=== PATIENT | female | born 1960 | race Caucasian/White ===

== ENCOUNTER 2018-09-18 06:57 | Day surgery (SDC) | payer BC ==
[~2018-09-18 06:57] MED LIST: CEFAZOLIN 2 Gram 2 GM/50 ML BAG IVPB ONE; FAMOTIDINE 20MG TABLET PO ONE; MECLIZINE 25 MG TABLET PO ONE; METOCLOPRAMIDE 10 MG TABLET PO ONE
[2018-09-18] MEDS ORDERED: KETAMINE HCL 100MG/1ML VIAL INJ ONE (06:58)
[2018-09-18] MEDS ORDERED: DEXAMETHASONE 4 MG/ML 1ML VIAL IVP ONE (06:58)
[2018-09-18] MEDS ORDERED: GLYCOPYRROLATE 0.2 MG/ML ML IV ONE (06:58)
[2018-09-18] MEDS ORDERED: ROPIVACAINE HCL (NAROPIN) /PF 5MG/ML 20ML VIAL IV ONE (06:58)
[2018-09-18] MEDS ORDERED: MIDAZOLAM HCL 2MG/2ML VIAL IV ONE (06:58)
[2018-09-18] MEDS ORDERED: PROPOFOL 10 MG/ML VIAL IV ONE (06:58)
[2018-09-18] MEDS ORDERED: RINGERS SOLUTION,LACTATED 1,000 ML IV ONE ×2 (07:55→09:15)
[2018-09-18] MEDS ORDERED: HYDROCODONE/APAP 5/325MG TABLET PO PRN (11:30)
[2018-09-18] MEDS ORDERED: SENNOSIDES/DOCUSATE SODIUM UD CAPSULE PO PRN (11:30)
[2018-09-18] MEDS ORDERED: MAGNESIUM HYDROXIDE 30 ML UDC PO PRN (11:30)
[2018-09-18] MEDS ORDERED: ACETAMINOPHEN 325 MG TAB PO PRN (11:30)
[2018-09-18] MEDS ORDERED: DIPHENHYDRAMINE HCL 25 MG CAPSULE PO PRN (11:30)
[2018-09-18] MEDS ORDERED: NALOXONE 0.4 MG/1 ML VIAL IVP PRN (11:30)
[2018-09-18] MEDS ORDERED: METOCLOPRAMIDE HCL 10 MG/2 ML VIAL IVP PRN (11:30)
[2018-09-18] MEDS ORDERED: AL HYDROX/MAG HYDROX 30ML UD PO PRN (11:30)
[2018-09-18] MEDS ORDERED: TRAMADOL HCL 50 MG TABLET PO PRN (11:30)
[2018-09-18] MEDS ORDERED: ZOLPIDEM TARTRATE 5 MG TABLET PO PRN (11:30)
[2018-09-18] MEDS ORDERED: OXYCODONE HCL/APAP 5MG/325MG TABLET PO PRN (11:30)
[2018-09-18] MEDS: RINGERS SOLUTION,LACTATED 1,000 ML IV SCH (11:42)
[2018-09-18] MEDS: OXYCODONE HCL/APAP 5MG/325MG TABLET PO PRN ×2 (11:48→16:03)
[2018-09-18] MEDS: HYDROMORPHONE HCL 2 MG/ML VIAL IV PRN ×4 (12:14→20:16)
[2018-09-18] MEDS ORDERED: ALBUTEROL HFA 8 GM INHALER INH PRN (13:00)
[2018-09-18] MEDS ORDERED: TRANEXAMIC ACID 1,000 MG in 0.9 % SODIUM CHLORIDE 100ML 100 ML IVPB ONE (13:00)
[2018-09-18] MEDS: CEFAZOLIN 2 Gram 2 GM/50 ML BAG IVPB SCH (17:23)
--- NOTE | 2018-09-18 17:34 | Rehab Evaluation ---
Patient Information - Patient Information Diagnosis: R Knee OA Ordered Treatment: PT Evaluate and Treat Status: Initial Evaluation Surgery: Yes (R TKA) Date of Surgery: 09/18/18 Past Medical/Surgical Hx: PAST MEDICAL/SURGICAL HISTORY Past Surgical History C SCOPES HYST KD KNEE SCOPES LEFT CATARACT PMH - Respiratory Hx Respiratory Disorders Yes Hx Asthma Yes: USES INHALER 1X'S A MONTH SMELLS SET IT OF PERFUMES ETC. Hx Bronchitis Yes Hx of SOB Yes: AT TIMES R/T ANXIETY PMH - Cardiovascular Hx Cardiovascular Disorders Yes Hx Hypertension Yes: CONTROLLED WITH MEDS Exercise Tolerance Fair PMH - Neuro Hx Neurological Disorders Yes Hx Headaches Yes: TENSION H/A'S AT TIMES PMH - GI Hx Gastrointestinal Disorders No PMH - Hx Genitourinary Disorders No Comment: S/P HYST PMH - Endocrine Hx Endocrine Disorders No PMH - Musculoskeletal Hx Musculoskeletal Disorders Yes Hx Arthritis Yes: KNEES Comment: "FROZEN" LEFT SHOULDER PMH - Psych Hx Psychiatric Problems Yes Hx Anxiety Yes: AT NIGHT PMH - Hematology/Oncology Hx Hematology/Oncology Yes Disorders Hx Blood Transfusion Reaction No Premorbid Status: Detail (The patient was independent with mobility prior to surgery, however had complaints of L shoulder pain with activity.) Social History: Detail (The patient lives with spouse in one story house with one step a landing and one step into house with no handrails. The bathroom is equipped with : tub/shower combination,handheld shower, standard toilet with a riser seat. The bathroom does not have grab bars. The patient has a front wheeled walker.) Precautions: [place], Fall, Other (WBAT on the R LE.) - Time With Patient Total Time Spent With Patient (Min): 45 Treatment Procedures: Detail (Initial Evaluation, gait training) Subjective Information - Subjective Information Per Patient (The patient complained of level 6 R knee pain using 0-10 pain scale.) Objective Data - Mental Status Patient Orientation: Oriented x3 - Visual Perception Appears within normal limits for therapeutic activities - ROM Not within normal limits (The patient's R knee AROM is limited s/p surgery. All other LE AROM is WNL.) - Strength/Tone Not within normal limits (The patient's LE strength was not tested s/p and due to pain complaints.) - Bed Mobility Needs Assist (The patient acheived supine to sit with use of trapeze and minimal assist of one to handle R LE. The patient was independent with sit to supine with use of trapeze. Movements were slow and gaurded and patient screamed in pain x 1 when completing supine to sit.) - Transfers Independent (The patient was independent with sit to and from stand transfer and toilet transfer.) - Balance Balance Sitting: Good Balance Standing: Good (Patient was able to stand and handle pants.) - Sensation Intact - Gait Detail (The patient ambulated with front wheeled walker WBAT on the R LE with supervision for safety only a distance of 7.5 feet x 1 and 30 feet x 1. Initially the patient's gait pattern was slow and gaurded but improved the more she ambulated. Patient's anxiety and anticipation of pain decreased the more she moved.) Therapy Assessment - Therapy Assessment Detail (The patient required assistance with bed mobility and was independent with transfers and ambulation. Patient's pain is limiting factor with mobility however feel the patient will progress well.) Problem List - Problem List Physical Therapy Problem List: Detail (1) R knee pain especially with movement 2) Limited R knee AROM and strength s/p surgery 3) Assistance with bed mobility) Goals - Goals Physical Therapy Goals: 1) The patient will be independent with bed mobility. 2) The patient will ambulate on stairs with supervision for safety using proper technique. 3) The patient will be independent with TKA HEP. 4) The patient will ambulate with assistive device independently WBAT on the R LE distances of 50 plus feet. Prognosis - Prognosis Good Plan - Plan Physical Therapy Plan: PT 1-3 visits for gait training on levels and stairs, instruction in HEP and bed mobility.
[2018-09-18] MEDS: ONDANSETRON HCL IV 4 MG/2 ML VIAL IVP PRN ×2 (18:11→21:48)
[2018-09-18] MEDS: TRAMADOL HCL 50 MG TABLET PO PRN (20:19)
[2018-09-18] MEDS: ASPIRIN 325 MG TAB ENTERIC-COATED PO SCH (22:04)
[2018-09-19] MEDS: CEFAZOLIN 2 Gram 2 GM/50 ML BAG IVPB SCH ×2 (01:20→10:49)
[2018-09-19] MEDS: ONDANSETRON HCL IV 4 MG/2 ML VIAL IVP PRN ×2 (02:48→11:00)
[2018-09-19] MEDS: HYDROMORPHONE HCL 2 MG/ML VIAL IV PRN (02:55)
[2018-09-19] MEDS: HYDROCODONE/APAP 5/325MG TABLET PO PRN ×2 (03:57→10:52)
[2018-09-19] MEDS: TRAMADOL HCL 50 MG TABLET PO PRN ×2 (08:07→13:45)
[2018-09-19] MEDS ORDERED: HYDROCHLOROTHIAZIDE 25 MG TABLET PO SCH (10:00)
[2018-09-19] MEDS ORDERED: LOSARTAN POTASSIUM 100 MG TABLET PO SCH (10:00)
[2018-09-19] MEDS ORDERED: AMLODIPINE BESYLATE 5MG TAB PO SCH (10:00)
[2018-09-19] MEDS: RINGERS SOLUTION,LACTATED 1,000 ML IV SCH (10:24)
[2018-09-19] MEDS: ASPIRIN 325 MG TAB ENTERIC-COATED PO SCH (10:46)
--- NOTE | 2018-09-19 10:59 | Rehab Evaluation ---
Patient Information - Patient Information Diagnosis: R Knee OA Ordered Treatment: OT Evaluate and Treat Status: Initial Evaluation Surgery: Yes (R TKA) Date of Surgery: 09/18/18 Past Medical/Surgical Hx: PAST MEDICAL/SURGICAL HISTORY Past Surgical History C SCOPES HYST KD KNEE SCOPES LEFT CATARACT PMH - Respiratory Hx Respiratory Disorders Yes Hx Asthma Yes: USES INHALER 1X'S A MONTH SMELLS SET IT OF PERFUMES ETC. Hx Bronchitis Yes Hx of SOB Yes: AT TIMES R/T ANXIETY PMH - Cardiovascular Hx Cardiovascular Disorders Yes Hx Hypertension Yes: CONTROLLED WITH MEDS Exercise Tolerance Fair PMH - Neuro Hx Neurological Disorders Yes Hx Headaches Yes: TENSION H/A'S AT TIMES PMH - GI Hx Gastrointestinal Disorders No PMH - Hx Genitourinary Disorders No Comment: S/P HYST PMH - Endocrine Hx Endocrine Disorders No PMH - Musculoskeletal Hx Musculoskeletal Disorders Yes Hx Arthritis Yes: KNEES Comment: "FROZEN" LEFT SHOULDER PMH - Psych Hx Psychiatric Problems Yes Hx Anxiety Yes: AT NIGHT PMH - Hematology/Oncology Hx Hematology/Oncology Yes Disorders Hx Blood Transfusion Reaction No Premorbid Status: Detail (The patient was independent with mobility prior to surgery, however had complaints of L shoulder pain with activity. Pt was responsible for home mgmt, meal prep and laundry; spouse was responsible for yard work.) Social History: Detail (The patient lives with spouse in one story house with one step a landing and one step into house with no handrails. The bathroom is equipped with : tub/shower combination, hand held shower, standard toilet with a riser seat. The bathroom does not have grab bars. The patient has a front wheeled walker.) Precautions: [place], Fall, Other (WBAT on the R LE.) - Time With Patient Total Time Spent With Patient (Min): 45 Treatment Procedures: Detail (OT eval low complexity) Subjective Information - Subjective Information Per Patient, Other (Spouse) Objective Data - Pain Pain Present: Yes (6/10 at rest) - Mental Status Patient Orientation: Oriented x3 - Visual Perception Appears within normal limits for therapeutic activities - ROM Not within normal limits (Cong UE AROM WNL with exception of left shoulder flexion which has been limited for several years (had SHARMAINE in 2011). She reports motion is functional for her level of activity.) - Strength/Tone Within normal limits (Pt reports weakness in arms, per observation pt has functional UE strength for ADLs/IADLs.) - Coordination Appears within normal limits for therapeutic activities - Bed Mobility Independent (Ind with supine to sit using bed rail.) - Transfers Independent (Ind with sit to stand at EOB.) - Balance Balance Sitting: Good Balance Standing: Fair (Pt had loss of balance while standing at EOB to pull pants up but was able to safely sit on EOB.) - Sensation Intact - ADL's/IADL's Detail (Pt educated and able to demonstrate learning of modified LE dressing techniques including doffing briefs and donning underwear and scrub bottoms. Pt reports spouse will assist with shoes and socks. Reviewed kitchen and shower safety and modifications, pt verbalized understanding.) Therapy Assessment - Therapy Assessment Detail (Pt able to perform partial LE dressing using modified techniques, she plans to have spouse assist as needed.) Problem List - Problem List Physical Therapy Problem List: Detail (1) R knee pain especially with movement 2) Limited R knee AROM and strength s/p surgery 3) Assistance with bed mobility) Occupational Therapy Problem List: Detail (No current IP OT problems identified.) Goals - Goals Physical Therapy Goals: 1) The patient will be independent with bed mobility. 2) The patient will ambulate on stairs with supervision for safety using proper technique. 3) The patient will be independent with TKA HEP. 4) The patient will ambulate with assistive device independently WBAT on the R LE distances of 50 plus feet. Occupational Therapy Goals: No current IP OT goals identified. Prognosis - Prognosis Good Plan - Plan Physical Therapy Plan: PT 1-3 visits for gait training on levels and stairs, instruction in HEP and bed mobility. Occupational Therapy Plan: No further IP OT recommended. Thank you for this referral.
--- NOTE | 2018-09-19 11:14 | Physical Therapy Tx Note ---
Physical Therapy Tx Note - Treatment Note Tolerated: Fair Total Time Spent With Patient: 25 Physical Therapy Tx Note: Detail (The patient was sitting on the edge of the bed when PT arrived. The patient was tearful ie: LOB episode with OT when standing. The patient was indpendent with sit to and from stand transfer. The patient ambulated with front wheeled walker WBAT on the R LE independently a distance of 100 feet x 1. The patient completed the following TKA exercises seated: ankle pumps, gluteal sets, quad sets, heel slides, hamstring sets. The patient is less fearful of movement today and is bending her knee more with gait and exercises. Will see patient this afternoon for stairs and car transfer.) Physical Therapy Problem List: Detail (1) R knee pain especially with movement 2) Limited R knee AROM and strength s/p surgery 3) Assistance with bed mobility) Physical Therapy Goals: 1) The patient will be independent with bed mobility. 2) The patient will ambulate on stairs with supervision for safety using proper technique. 3) The patient will be independent with TKA HEP. 4) The patient will ambulate with assistive device independently WBAT on the R LE distances of 50 plus feet. (Goal Met) Physical Therapy Plan: PT 1-3 visits for gait training on levels and stairs, instruction in HEP and bed mobility.
--- NOTE | 2018-09-19 14:02 | Physical Therapy Tx Note ---
Physical Therapy Tx Note - Treatment Note Tolerated: Good Total Time Spent With Patient: 20 Physical Therapy Tx Note: Detail (The patient was independent with sit to and from supine. The patient ambulated to wheelchair and was taken to Rehab Dept. to ambulate on stairs. The patient ambulated on 3 steps with use of 2 railings using proper technique with supervision for safety. Patient also ambulated on stairs with use of one railing and quad cane with supervision for safety. Patient's was present for session. The patient and her both felt comfortable with stairclimbing and decided the front enterance would be easier because she had a pole to hang onto as a railing. The patient was transferred to car with observing. The pt. required minimal PA of lift R LE into car. The patient has met all inpatient goals and is discharged from inpatient PT.) Physical Therapy Problem List: Detail (1) R knee pain especially with movement 2) Limited R knee AROM and strength s/p surgery 3) Assistance with bed mobility) Physical Therapy Goals: 1) The patient will be independent with bed mobility (Goal Met). 2) The patient will ambulate on stairs with supervision for safety using proper technique (Goal Evelyn). 3) The patient will be independent with TKA HEP (Goal Met). 4) The patient will ambulate with assistive device independently WBAT on the R LE distances of 50 plus feet. (Goal Met) Physical Therapy Plan: The patient has discharged from inpatient PT and is to continue with outpatient PT.
--- NOTE | 2018-09-20 08:11 | Discharge Summary ---
DATE OF ADMISSION: 09/18/2018 DATE OF DISCHARGE: 09/19/2018 ADMITTING DIAGNOSIS: Osteoarthritis of the right knee. DISCHARGE DIAGNOSIS: Osteoarthritis of the right knee. OPERATIVE PROCEDURE: Right total knee arthroplasty. HISTORY OF PRESENT ILLNESS: This 58-year-old female was admitted to the hospital for elective total knee arthroplasty. Tolerated the operative procedure well. The drain was removed the first postoperative day. She did complain of some nausea with narcotics, which was improved with Zofran. She progressed satisfactorily with PT and did clear physical therapy and was ready for discharge. DISCHARGE INSTRUCTIONS: Follow up in the clinic in 2 weeks. Routine wound care instructions were given. She will have outpatient physical therapy. She was to take aspirin 325 mg daily, Zofran ODT #20 1 every 6 hours p.r.n., and [place] 5/325 #40, 1 every 6 hours as necessary for pain. Should she have any problems prior to being seen she was instructed to call my office. MYKEL
--- NOTE | 2018-09-20 08:11 | Operative Note ---
DATE OF SURGERY: 09/18/2018 SURGEON: Avinash Michaud DO PREOPERATIVE DIAGNOSIS: Osteoarthritis of the right knee. POSTOPERATIVE DIAGNOSIS: Osteoarthritis of the right knee. OPERATION: Right total knee arthroplasty. DESCRIPTION OF PROCEDURE: This 58-year-old female was taken to the operating room and placed in the supine position on the operating room table. Spinal anesthetic was administered, and the right lower extremity was elevated. It was prepped with Hibiclens and draped in the usual sterile fashion. It was exsanguinated and the tourniquet inflated to 300 mmHg. An anterior longitudinal midline incision was made followed by a medial parapatellar arthrotomy incision. An intracondylar drill hole was made for the intramedullary alignment bina, and a 5-degree valgus 9 mm cut was made in the distal femur. The sizing jig was affixed and the patient had a significant anterior-posterior/medial-lateral mismatch with the femur being much larger anterior-posterior than medial-lateral. For compromise, we moved the pin sites 2 mm anteriorly and cut a size 65, which gave us good coverage without a significant overlap medial-laterally. The wafers of bone were removed. The 4-in-1 cutting block had been pinned in 3 degrees of external rotation. We then directed our attention to the proximal tibia, and an extramedullary alignment guide was used to cut the proximal tibia referencing a 10 mm cut off the lateral tibial plateau. A wafer of bone was removed. Remnants of the menisci and osteophytes were removed from the posterior aspect of the joint. The patella was cut and restored to anatomic height with a 34 x 7.8 mm trial. The wound copiously irrigated with pulse lavage, lactated Ringer's solution. The tibia stem punch was used. A size 71 was seen to be the appropriate size. The components were then inserted, and a 13 and 71 tibial bearing was seen to be the appropriate size. The 65 femur, 34 x 7.8 mm patella was used. This gave us excellent stability throughout the entire range of motion. All trial components were then removed and the wound copiously irrigated with pulse lavage lactated Ringer's solution removing all chips from the joint. All bony surfaces were dried and all components were cemented into place. Initially a size 71 tibial baseplate was cemented into place followed by the insertion of the tibial bearing, femoral component, and finally the patella. Once the cement had hardened, the knee was again taken through range of motion and excellent stability of the components with full extension, full flexion was accomplished. The wound again copiously irrigated with lactated Ringer's solution. A drain was placed through a separate stab incision, and the arthrotomy incision was closed with a #2 Vicryl. The subcutaneous tissue was closed with 0 Vicryl and the skin was stapled. Sterile dressings applied with a Polar Pack. The patient was taken to the recovery room in satisfactory condition. GROSS PATHOLOGY: This patient demonstrated very severe patellofemoral osteoarthritis. Full-thickness articular cartilage loss was noted there. Medial and lateral components also showed grade 4 changes. Final components inserted were a [employer] Vanguard size 65 cruciate retaining femoral component, a 13 x 71 anterior stabilized tibial baseplate, E1 component was used, a 71 tibial baseplate, and a 34 x 7.8 mm patella was used. MYKEL
== END 2018-09-19 15:10 | disposition home or self-care (01) ==
LOC: SUR 06:57 → MEDSURG 11:00 → SUR 09-19 15:10
PROVIDERS: ATTEND Orthopaedic Surgery
DX: M17.11 Unilateral primary osteoarthritis, right knee (principal); I10 Essential (primary) hypertension; J45.909 Unspecified asthma, uncomplicated
CPT/HCPCS: 76942; 94640; 94664; J2405; J3490; J7120

== ENCOUNTER 2019-01-25 06:02 | Day surgery (SDC) | payer BC ==
[~2019-01-25 06:02] MED LIST changes: +SCOPOLAMINE 1 PATCH TDSY TD ONE
[2019-01-25] MEDS ORDERED: LIDOCAINE 2% MDV (20MG/ML) 20ML VIAL IV ONE (06:03)
[2019-01-25] MEDS ORDERED: PROPOFOL 10 MG/ML VIAL IV ONE (06:03)
[2019-01-25] MEDS ORDERED: DEXAMETHASONE 4 MG/ML 1ML VIAL IVP ONE (06:03)
[2019-01-25] MEDS ORDERED: MIDAZOLAM HCL 2MG/2ML VIAL IV ONE (06:03)
[2019-01-25] MEDS ORDERED: ROPIVACAINE HCL (NAROPIN) /PF 5MG/ML 20ML VIAL IV ONE (06:03)
[2019-01-25] MEDS ORDERED: ONDANSETRON HCL IV 4 MG/2 ML VIAL IVP ONE (06:03)
[2019-01-25] MEDS ORDERED: RINGERS SOLUTION,LACTATED 1,000 ML IV ONE ×2 (06:55→08:15)
[2019-01-25] MEDS ORDERED: KETOROLAC 30 MG/ML VIAL IVP ONE (09:33)
[2019-01-25] MEDS ORDERED: ALBUTEROL HFA 8 GM INHALER INH PRN (10:05)
[2019-01-25] MEDS ORDERED: DIPHENHYDRAMINE HCL 25 MG CAPSULE PO PRN (10:15)
[2019-01-25] MEDS ORDERED: NALOXONE 0.4 MG/1 ML VIAL IVP PRN (10:15)
[2019-01-25] MEDS ORDERED: OXYCODONE HCL/APAP 5MG/325MG TABLET PO PRN ×2 (10:15)
[2019-01-25] MEDS ORDERED: AL HYDROX/MAG HYDROX 30ML UD PO PRN (10:15)
[2019-01-25] MEDS ORDERED: SENNOSIDES/DOCUSATE SODIUM UD CAPSULE PO PRN (10:15)
[2019-01-25] MEDS ORDERED: MAGNESIUM HYDROXIDE 30 ML UDC PO PRN (10:15)
[2019-01-25] MEDS ORDERED: TRAMADOL HCL 50 MG TABLET PO PRN (10:15)
[2019-01-25] MEDS ORDERED: ZOLPIDEM TARTRATE 5 MG TABLET PO PRN (10:15)
[2019-01-25] MEDS ORDERED: ONDANSETRON HCL IV 4 MG/2 ML VIAL IVP PRN (10:15)
[2019-01-25] MEDS ORDERED: METOCLOPRAMIDE HCL 10 MG/2 ML VIAL IVP PRN (10:15)
[2019-01-25] MEDS ORDERED: ACETAMINOPHEN 325 MG TAB PO PRN (10:15)
--- NOTE | 2019-01-25 10:53 | Operative Note ---
DATE OF SURGERY: 01/25/2019 SURGEON: Avinash Michaud D.O. REFERRING PHYSICIAN: Kimberly Larsen M.D. PREOPERATIVE DIAGNOSIS: OSTEOARTHRITIS OF THE LEFT KNEE. POSTOPERATIVE DIAGNOSIS: OSTEOARTHRITIS OF THE LEFT KNEE. OPERATION: LEFT TOTAL KNEE ARTHROPLASTY. DESCRIPTION: This 58-year-old female was taken to the Operating Room and placed in supine position on the operating room table. A spinal anesthetic was induced and the left lower extremity was elevated. It was prepped with Hibiclens and draped in the usual sterile fashion. It was exsanguinated and the tourniquet was inflated to 300 mmHg. All scrub personnel wore personal isolation suits. An anterior longitudinal midline incision was made followed by medial parapatellar arthrotomy incision, intracondylar drill holes made for intramedullary alignment bina and a 5 degree valgus 9 mm cut was made in the distal femur and the wafer of bone was removed. The sizing jig was affixed and the patient had a mismatch with the knee being too narrow in the mediolateral dimension and too large in the anteroposterior dimension. It was therefore necessary for us to move the cutting block 2 mm anterior and a 65 mm cut was then made with the cutting block pinned in 3 degrees of external rotation. The wafers of bone were removed. We then directed our attention to the proximal tibia and an extramedullary alignment guide was used to cut the proximal tibia referencing a 10 mm cut off the lateral tibial plateau. The patient did have bone loss both in the medial and lateral side, but appeared to be worse on the medial side. After the appropriate alignment had been assured a 3 degree posterior slope cut was made on the proximal tibia and the wafer of bone was removed. Remnants of the menisci and osteophytes were removed from the posterior aspect of the joint. The wound was copiously irrigated with pulse lavage lactated Ringer's solution. The patella was cut and restored to anatomic height with a 34 x 7.8 mm trial. The remainder of the trial components were inserted and we started with a 10 and went up to a 12 mm bearing giving us the best stability through full range of motion. All trial components were then removed and the wound again was copiously irrigated with pulse lavage lactated Ringer's solution. All bony surfaces were dried, excess cement was removed after the insertion of each component. Initially a size 75 tibial baseplate was cemented into place followed by the insertion of the 12 mm tibial bearing. A 65 mm femoral component was inserted and finally the patella was cemented into place. Once the cement had hardened the knee was again taken through range of motion and found to be completely stable with full extension. No varix or valgus instability. Full flexion of the patellofemoral joint was stable. A drain was placed through a separate stab incision and the arthrotomy incision was closed with #2 Vicryl, subcutaneous tissue was closed with 0 Vicryl, and the skin was stapled. Sterile dressings with Polar Care were applied and the patient was taken to the Recovery Room in satisfactory condition. GROSS PATHOLOGY: This patient demonstrated very severe osteoarthritis of the left knee with full thickness articular cartilage loss noted in all compartments with marked wear of the patella and full thickness articular cartilage loss noted on both compartments on the femoral surface and on the medial compartment of the tibial surface. Serial Grade 3 changes were noted on the lateral tibial surface. Final components inserted were [employer] Vanguard size 65 cruciate retaining femoral component, a 75 tibial baseplate, a 12 mm anterior stabilized E1 bearing and a 34 x 7.8 mm patella was used. JOB NUMBER: [id number] MTDD
[2019-01-25] MEDS: HYDROCODONE/APAP 5/325MG TABLET PO PRN ×2 (11:26→21:03)
[2019-01-25] MEDS: RINGERS SOLUTION,LACTATED 1,000 ML IV SCH ×2 (12:57→15:18)
--- NOTE | 2019-01-25 14:04 | Rehab Evaluation ---
Patient Information - Patient Information Diagnosis: L knee DJD Ordered Treatment: PT Evaluate and Treat Status: Initial Evaluation Surgery: Yes (L TKA) Date of Surgery: 01/25/19 Past Medical/Surgical Hx: PAST MEDICAL/SURGICAL HISTORY Surgery to Affected Area? No Recent Surgery? 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 Hx Bronchitis Yes Hx of URI Yes: RECENT SINUS INFECTION RESOLVED Hx of SOB Yes: AT TIMES R/T ANXIETY PMH - Cardiovascular Hx Cardiovascular Disorders Yes Hx Hypertension Yes: CONTROLLED WITH MEDS Exercise Tolerance Good PMH - Neuro Hx Neurological Disorders Yes Hx Headaches Yes: TENSION H/A'S AT TIMES PMH - GI Hx Gastrointestinal Disorders No PMH - Hx Genitourinary Disorders No Comment: S/P HYST PMH - Endocrine Hx Endocrine Disorders No PMH - Musculoskeletal Hx Musculoskeletal Disorders Yes Hx Arthritis Yes: KNEES Comment: "FROZEN" LEFT SHOULDER PMH - Psych Hx Psychiatric Problems Yes Hx Anxiety Yes: r t upcoming sx; at night time too-mind doesn't shut down. PMH - Hematology/Oncology Hx Hematology/Oncology Yes Disorders Hx Blood Transfusion Reaction No Premorbid Status: Detail (The patient was independent with all mobility prior to surgery.) Social History: Detail (The patient lives with spouse in a one story house with one step a landing and one step with no handrails at the enterance. The bathroom is equipped with: a tub/shower combination, joslyn held shower, standard height toilet seat with a riser seat. There are no grab bars in the bathroom. The patient has a front wheeled walker.) Precautions: [place], Fall, Other (WBAT on the L LE) - Time With Patient Total Time Spent With Patient (Min): 30 Treatment Procedures: Detail (Initial evaluation, low complexity , gait training on levels and stairs.) Subjective Information - Subjective Information Per Patient (The patient had complaints of L knee pain level 3 at the highest.) Objective Data - Pain Pain Present: Yes Pain Intensity: 3 Pain Scale Used: Numeric (1 - 10) - Mental Status Patient Orientation: Oriented x3 - Visual Perception Appears within normal limits for therapeutic activities - ROM Not within normal limits (The patient's L knee AROM is limited s/p surgery. All other AROM is WNL.) - Strength/Tone Not within normal limits (The patient's LE strength was not tested however weakness in both LE's was noted functionally ie: pt. had difficulty lifting both LE's with supine to and from sit transfer.) - Bed Mobility Needs Assist (The patient required minimal PA to lift LE's with supine to and from sit. Patient was able to hook R LE under lift but had difficulty lifting both legs. The patient's will be able to assist patient as needed at home.) - Transfers Independent (The patient was independent with sit to and from stand transfer and toilet transfer.) - Balance Balance Sitting: Good Balance Standing: Good - Gait Detail (The patient ambulated with front wheeled walker a distance of 120 feet x 1 WBAT on the L LE independently ( assist with IV). The patient ambulated on 3 stairs with use of railing and folded walker with supervision for safety).) Therapy Assessment - Therapy Assessment Detail (The patient ambulated independently on levels and stairs (supervision for safety). The patient was independent with transfers and required minimal assist with bed mobility. Anticipate the patient will complete inpt. PT goals in one session.) Problem List - Problem List Physical Therapy Problem List: Detail (Decreased L knee AROM and L LE strength) Goals - Goals Physical Therapy Goals: The patient will be independent with TKA HEP. Prognosis - Prognosis Good Plan - Plan Physical Therapy Plan: PT 1 sessions for gait training as needed and instruction in HEP.
[2019-01-25] MEDS: CEFAZOLIN 2 Gram 2 GM/50 ML BAG IVPB SCH ×2 (15:17→23:13)
[2019-01-25] MEDS: TRAMADOL HCL 50 MG TABLET PO PRN ×2 (15:27→23:12)
--- NOTE | 2019-01-25 15:27 | Rehab Evaluation ---
Patient Information - Patient Information Diagnosis: L knee DJD Ordered Treatment: OT Evaluate and Treat Status: Initial Evaluation Surgery: Yes (L TKA) Date of Surgery: 01/25/19 Past Medical/Surgical Hx: PAST MEDICAL/SURGICAL HISTORY Surgery to Affected Area? No Recent Surgery? 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 Hx Bronchitis Yes Hx of URI Yes: RECENT SINUS INFECTION RESOLVED Hx of SOB Yes: AT TIMES R/T ANXIETY PMH - Cardiovascular Hx Cardiovascular Disorders Yes Hx Hypertension Yes: CONTROLLED WITH MEDS Exercise Tolerance Good PMH - Neuro Hx Neurological Disorders Yes Hx Headaches Yes: TENSION H/A'S AT TIMES PMH - GI Hx Gastrointestinal Disorders No PMH - Hx Genitourinary Disorders No Comment: S/P HYST PMH - Endocrine Hx Endocrine Disorders No PMH - Musculoskeletal Hx Musculoskeletal Disorders Yes Hx Arthritis Yes: KNEES Comment: "FROZEN" LEFT SHOULDER PMH - Psych Hx Psychiatric Problems Yes Hx Anxiety Yes: r t upcoming sx; at night time too-mind doesn't shut down. PMH - Hematology/Oncology Hx Hematology/Oncology Yes Disorders Hx Blood Transfusion Reaction No Premorbid Status: Detail (The patient was independent with all mobility and ADLs prior to surgery. She had R TKA done about 17 weeks ago and is familiar with modified drsg techniques.) Social History: Detail (The patient lives with very supportive spouse in a one story house with one step a landing and one step with no handrails at the enterance. The bathroom is equipped with: a tub/shower combination, hand held shower head, standard height toilet seat with a riser seat. There are no grab bars in the bathroom. The patient has a front wheeled walker.) Precautions: [place], Fall, Other (WBAT on the L LE) - Time With Patient Total Time Spent With Patient (Min): 25 Treatment Procedures: Detail (OT eval low) Subjective Information - Subjective Information Per Patient (Pt has no concerns going home. She states that she has a very supportive who has already purchased all equipment needs in anticipation for this sx. Pt had R TKA and is familiar with walker use and modified drsg t jamshid.) Objective Data - Pain Pain Present: Yes (Pt states pain is more now than it was earlier.) Pain Intensity: 6 (L knee) Pain Scale Used: Numeric (1 - 10) - Mental Status Patient Orientation: Oriented x3 - Visual Perception Appears within normal limits for therapeutic activities - ROM Not within normal limits (Pt has Left frozen shld and has shld flex and abd to about 100 deg on that side. WNL for RUE for all shld, elbow, wrist ROM.) - Strength/Tone Within normal limits (BUE's) - Coordination Appears within normal limits for therapeutic activities - Bed Mobility Needs Assist (Min A for lifting LLE in order for pt to get right food underneath to move LLE off bed. Min A for LLE back onto bed.) - Transfers Independent (sit <> stand t/f as well as toilet t/f from low toilet seat level.) - Balance Balance Sitting: Good - Sensation Intact - Gait Detail (Pt ambulated independently from bed into bathroom to complete toileting using 2WW.) - ADL's/IADL's Detail (Pt independent with sit<>stand t/f off low toilet seat level. Independent with clothing management. Independent with toilet hygiene and hand washing. No loss of balance noted when standing without walker support. Pt did state she is in increased pain right now than she was earlier and found t/f's a little more difficult but was able to complete safely. Pt declined pant/sock don due to increased pain levels. She was able to verbalize understanding as she has just recently completed using these techniques from when she had her R TKA. Reviewed modified LB drsg techniques with pt and pt verbalized understanding. She states her spouse will be home 24-7 to assist with pant thread over feet or sock don if needed for the first few days. Pt recieved written instructions on modified drsg techniques as well as pictures of available adaptive equipment if she continues to have difficulty reaching left foot. Pt has no questions or concerns about LB drsg at this time and feels confident she will be able to complete this at home with some assist from spouse.) Therapy Assessment - Therapy Assessment Detail (Pt independent with toilet t/f, clothing managment, toilet H, sit<>stand t/f's and is able to verbalize understanding of modified LB drsg technique. She will have supportive spouse at home to assist as needed for first few days following sx.) Problem List - Problem List Physical Therapy Problem List: Detail (Decreased L knee AROM and L LE strength) Goals - Goals Physical Therapy Goals: The patient will be independent with TKA HEP. Prognosis - Prognosis Good Plan - Plan Physical Therapy Plan: PT 1 sessions for gait training as needed and instruction in HEP. Occupational Therapy Plan: No further inpatient OT needed at this time.
[2019-01-25] MEDS ORDERED: FONDAPARINUX 2.5 MG/0.5 ML SYR SQ SCH (16:00)
[2019-01-25] MEDS: ASPIRIN 325 MG TAB ENTERIC-COATED PO SCH (21:03)
[2019-01-26] MEDS: HYDROCODONE/APAP 5/325MG TABLET PO PRN ×3 (00:01→07:28)
[2019-01-26] MEDS: CEFAZOLIN 2 Gram 2 GM/50 ML BAG IVPB SCH (07:29)
[2019-01-26] MEDS: RINGERS SOLUTION,LACTATED 1,000 ML IV SCH (07:50)
[2019-01-26] MEDS: TRAMADOL HCL 50 MG TABLET PO PRN (09:28)
[2019-01-26] MEDS: ASPIRIN 325 MG TAB ENTERIC-COATED PO SCH (09:29)
[2019-01-26] MEDS ORDERED: AMLODIPINE BESYLATE 5MG TAB PO SCH (10:00)
[2019-01-26] MEDS ORDERED: LOSARTAN POTASSIUM 100 MG TABLET PO SCH (10:00)
[2019-01-26] MEDS ORDERED: HYDROCHLOROTHIAZIDE 25 MG TABLET PO SCH (10:00)
--- NOTE | 2019-01-26 11:54 | Physical Therapy Tx Note ---
Physical Therapy Tx Note - Treatment Note Tolerated: Good Total Time Spent With Patient: 20 Physical Therapy Tx Note: Detail (Patient states she didn't sleep well last night due to knee pain. Patient states knee painful today. Patient was reclined in chair upon HOSIERY LOOPER arrival. Patient transferred sit to and from stand SBA x1. Patient ambulated 200 feet with wheeled walker SBA x1. Patient descended and ascended 3 steps with CGA x1 with using stairwell railing. Tiki ent performed the following exercises reclined in chair x10 reps each: ankle pumps, quad sets, glut squeezes, hamstring sets, heel slides, and assisted SLR x5. Patient tolerated treatment well. Patient displays good understanding of ambulation with walker, stair climbing, and HEP. Patient discharged from inpatient PT at this time as all goals are met.) Physical Therapy Problem List: Detail (Decreased L knee AROM and L LE strength) Physical Therapy Goals: The patient will be independent with TKA HEP. Met. Prognosis: Good Physical Therapy Plan: Patient discharged from inpatient PT at this time as all goals are met.
--- NOTE | 2019-01-28 09:59 | Discharge Summary ---
DATE OF ADMISSION: 01/25/2019 DATE OF DISCHARGE: 01/26/2019 ADMITTING DIAGNOSIS: OSTEOARTHRITIS OF THE LEFT KNEE. DISCHARGE DIAGNOSIS: OSTEOARTHRITIS OF THE LEFT KNEE. OPERATIVE PROCEDURE: Elective left total knee arthroplasty. DESCRIPTION: This 58-year-old female was taken to the Operating Room for total knee arthroplasty on 01/25/2019. She tolerated the operative procedure well. The drain was removed the first postoperative day. She actually cleared physical therapy the first postoperative day, but continued hospitalization for prophylactic intravenous antibiotics. The drain pulled and the dressing changed prior to discharge. On 01/26/2019 the wound appeared to be healthy. Her discharge instructions were to follow-up in the clinic in two weeks. She was given a prescription for Tramadol 50 mg one or two every six hours as necessary for pain, she was given #60 with one refill, [place] 5/325 #40 one every four hours as necessary for pain and she will take aspirin 325 mg daily for four weeks. She will have outpatient physical therapy. She is to wear her CARLA hose during the day and remove them at night. Routine wound care instructions were given. Should she have any problems prior to being seen she was instructed to call my office. JOB NUMBER: [id number] MTDD
== END 2019-01-26 11:40 | disposition home health service (06) ==
LOC: SUR 06:02 → MEDSURG 10:29 → SUR 01-26 11:40
PROVIDERS: ATTEND Orthopaedic Surgery
DX: M17.12 Unilateral primary osteoarthritis, left knee (principal); I10 Essential (primary) hypertension; J45.909 Unspecified asthma, uncomplicated
CPT/HCPCS: 27447; 01402; 64447; J1885; J2405; J0690 ×2; J1652; J2795; 76942; J7120